=== PATIENT | female | born 1980 | race African-American/Black ===

== ENCOUNTER 2020-02-28 20:59 | Observation (INO) | payer OTHER, SELFPAY ==
--- NOTE | ~2020-02-28 | XR_ITS ---
EXAMINATION: XR chest 1V portable DATE: 02/28/2020 21:44 INDICATION: Chest pain. Shortness of breath. TECHNIQUE: A single frontal view of the chest was obtained. COMPARISON: None. FINDINGS: The chest demonstrates clear lungs without pneumonia, pleural effusion, or pneumothorax. Th e heart size is normal. IMPRESSION: 1. No acute cardiopulmonary disease. Reviewed, dictated and finalized at location A. [facility] [employer]
--- NOTE | 2020-02-28 21:03 | ECG_ITS ---
Measurements Intervals [place] Rate: 135 P: 67 WI: 155 QRS: 36 QRSD: 97 T: 38 QT: 331 QTc: 496 Interpretive Statements SINUS TACHYCARDIA VOLTAGE CRITERIA FOR LVH NONSPECIFIC ST & T-WAVE ABNORMALITY- DIFFUSE LEADS BASELINE WANDER- AVL, AVF, V3-V6 ABNORMAL ECG Electronically Signed On 02-29-2020 6:19:40 [employer]ACH[employer] by Evan Perez D.O.
[2020-02-28 21:19] VITALS: BP 145/84; PULSE 101; RESP 20; TEMP 38; O2SAT 100
--- NOTE | 2020-02-28 21:24 | ED.GENADULT ---
HPI - General Adult General Chief complaint: Chest Pain <Elizabeth Saxena MD - Last Filed: 02/29/20 11:21> Stated complaint: CP <Elizabeth Saxena MD - Last Filed: 02/29/20 11:21> Time Seen by Provider: 02/28/20 21:09 <Elizabeth Saxena MD - Last Filed: 02/29/20 11:21> Source: patient <Elizabeth Saxena MD - Last Filed: 02/29/20 11:21> History of Present Illness HPI narrative: Patient is a 40 y/o female complaining of chest pain radiating to left jaw starting 1-2 hours ago. She states that she was just sitting at home when this happened. She describes the pain as pressure and rates it as 7/10. There is no alleviating or exacerbating factor. She also feels SOB. She denies any fever. She states that she lost sense of taste last week. <Elizabeth Saxena MD - Last Filed: 02/29/20 11:21> Related Data Home medications: Home Medications Medication Instructions Recorded Confirmed apremilast [Otezla] 30 mg PO DAILY 02/29/20 02/29/20 <Elizabeth Saxena MD - Last Filed: 02/29/20 11:21> Allergies/adverse reactions: Allergies Allergy/AdvReac Type Severity Reaction Status Date / Time Iodinated Contrast Media AdvReac Nausea and Verified 02/29/20 08:54 Vomiting <Elizabeth Saxena MD - Last Filed: 02/29/20 11:21> Review of Systems Constitutional: Constitutional: Denies chills, Denies fever(s), Denies headache(s) and Denies weakness <Elizabeth Saxena MD - Last Filed: 02/29/20 11:21> Eyes: Eyes: Denies blurry vision <Elizabeth Saxena MD - Last Filed: 02/29/20 11:21> ENT: Denies headache(s) and Denies neck pain <Elizabeth Saxena MD - Last Filed: 02/29/20 11:21> Comments: lost taste <Elizabeth Saxena MD - Last Filed: 02/29/20 11:21> Cardiovascular: Cardiovascular: Reports chest pain and Reports dyspnea <Elizabeth Saxena MD - Last Filed: 02/29/20 11:21> Respiratory: Respiratory: Denies cough and Reports dyspnea <Elizabeth Saxena MD - Last Filed: 02/29/20 11:21> Gastrointestinal: Gastrointestinal: Denies abdominal pain, Denies diarrhea, Denies nausea and Denies vomiting <Elizabeth Saxena MD - Last Filed: 02/29/20 11:21> Genitourinary: Genitourinary: Denies hematuria and Denies dysuria <Elizabeth Saxena MD - Last Filed: 02/29/20 11:21> Musculoskeletal: Musculoskeletal: Denies back pain and Denies neck pain <Elizabeth Saxena MD - Last Filed: 02/29/20 11:21> Neurologic: Denies headache(s) and Denies weakness <Elizabeth Saxena MD - Last Filed: 02/29/20 11:21> PMF Family History Family History: Family History Father Family history of diabetes mellitus in first degree relative Mother Family history of congestive heart failure Hypertension Family history of type 1 diabetes mellitus Family history of heart disease in male family member before age 55 Sibling Hypertension Grandparent Family history of type 1 diabetes mellitus Other Diabetes mellitus Family history of arthritis Family history of cardiovascular disease Family history of lung cancer Family history of premature coronary heart disease <Elizabeth Saxena MD - Last Filed: 02/29/20 11:21> Social History Social History: Social History Smoking status: Never smoker Alcohol intake: current Drinks per week: 4 Substance use: current Substance use type: marijuana Spiritual care concerns: No <Elizabeth Saxena MD - Last Filed: 02/29/20 11:21> Exam Const: General: no acute distress and well developed <Elizabeth Saxena MD - Last Filed: 02/29/20 11:21> Orientation/consciousness: oriented to person, oriented to place, oriented to time and patient oriented x3 <Elizabeth Saxena MD - Last Filed: 02/29/20 11:21> HENMT: Head: normocephalic <Elizabeth Saxena MD - Last Filed: 02/29/20 11:21> Ears: external ears normal <Elizabeth Saxena MD - Last Filed: 02/29/20 11:21> General nose exam: Normal external nose present <Elizabeth Mckeon Ch
[2020-02-28 21:37] LABS: Basophils Percent Auto 0.4 % (0.2-1.2); Eosinophils Absolute Auto 0.3 K/mm3 (0-0.3); Hemoglobin 13.2 g/dL (12.0-15.0); Immature Granulocyte Absolute 0.01 K/mm3 (0.00-0.031); Immature Granulocyte Percent A 0.2 % (0-0.5); Lymphocytes Absolute Auto 2.42 K/mm3 (0.9-3.2); Lymphocytes Percent Auto 47.2 % (18.3-44.2); Mean Corpuscular HGB Conc 33.8 g/dl (32-36); Mean Corpuscular Volume 94.4 fl (80-100); Mean Platelet Volume 10.3 fl (7.4-10.4); Monocytes Absolute Auto 0.4 K/mm3 (0.1-0.6); Monocytes Percent Auto 7.8 % (2.6-8.5); Neutrophils Percent Auto 38.4 % (45.5-73.1); Platelet Count Result 280 k/mm3 (150-375); Red Blood Count 4.13 M/mm3 (4.2-5.4); Red Cell Distribution Width 13.1 % (11.5-14.5); White Blood Count 5.1 K/mm3 (4.5-10.0)
[2020-02-28] MEDS: ASPIRIN 81 MG CHEWABLE TABLET 324 MG PO (21:41)
[2020-02-28] MEDS: LORazepam INJ (*CRX) 2 MG/ML VIAL 1 MG IV PUSH (21:42)
[2020-02-28 21:46] LABS: INR 1.1; Prothrombin Time 14.3 Seconds (11.1-14.7)
[2020-02-28 21:47] LABS: Partial Thromboplastin Time 29.2 SECONDS (22.3-36.8)
[2020-02-28 21:49] LABS: Anion Gap 13 mmol/L (8-16); Blood Urea Nitrogen 10 mg/dL (7-17); Calcium 9.8 mg/dL (8.4-10.2); Carbon Dioxide 27 mmol/L (22-30); Chloride 103 mmol/L (98-107); Estimated CRCL calculation 110 ml/min; Estimated Glomerular Filt Rate > 60; Glucose 118 mg/dL (65-105); Potassium 3.1 mmol/L (3.4-5.0); Sodium 143 mmol/L (137-145)
[2020-02-28 22:00] LABS: D Dimer < 0.22 ug/mL (<0.48)
[2020-02-28 22:01] LABS: Troponin I 0.023 ng/mL (0.000-0.034)
--- NOTE | 2020-02-28 23:19 | ECG_ITS ---
Measurements Intervals [place] Rate: 69 P: 46 VA: 192 QRS: 2 QRSD: 106 T: -12 QT: 369 QTc: 397 Interpretive Statements SINUS RHYTHM POSSIBLE LEFT VENTRICULAR HYPERTROPHY BORDERLINE T WAVE ABNORMALITY- ANTERIOR LEADS BORDERLINE ECG Electronically Signed On 02-29-2020 6:22:40 [employer] by Evan Perez D.O.
[2020-02-28 23:24] VITALS: BP 102/78; PULSE 80; RESP 20; O2SAT 100
[2020-02-28] MEDS: POTASSIUM CHLORIDE 20 MEQ TABLET 40 MEQ PO (23:31)
[2020-02-29] VITALS (14 sets, daily range): BP systolic 95–133; BP diastolic 58–91; PULSE 48–77; RESP 16–20; TEMP 36.3–36.9; O2SAT 97–100; BMI 29.6
[2020-02-29 00:53] LABS: Troponin I < 0.012 ng/mL (0.000-0.034)
[2020-02-29 03:37] LABS: Troponin I 0.023 ng/mL (0.000-0.034)
--- NOTE | 2020-02-29 04:36 | PC.NURSE ---
pt placed on a hospital bed.
--- NOTE | 2020-02-29 08:33 | ADMGEN ---
This patient, Araceli Jiang, was admitted to [facility] Surg Room 322-01. Patient/family oriented to hospital policies and general routines including ID bracelet, bed and alarms, visiting hours, pain management, procedures, bathroom and other care routines, personal items, smoking policy, room service/diet, and visiting hours. Information on how to activate the Rapid Response Team has been discussed. Patient/Family are encouraged to report perceived risks to care and to ask questions if they do not understand what they are told or what they should do.
[2020-02-29 16:06] LABS: Troponin I < 0.012 ng/mL (0.000-0.034)
[2020-02-29] MEDS: POTASSIUM CHLORIDE 20 MEQ PACKET (FOR LIQUID) 40 MEQ PO (16:15)
--- NOTE | 2020-02-29 17:18 | PM.IMHP ---
H&P: HPI History of Present Illness Date/Time: 02/29/20 17:18 Chief complaint: Chest pain Suspected COVID 19 Narrative: Araceli Jiang is a 40 year old female complaining of chest pain radiating to left jaw last night. Noticed her heart rate going up to 140s at that time, knew this because of her i watch. Pt felt sob at that time and had chest discomfort. [place] like a rock in her chest at that time. Pt has seen Dr Hand for tacycardia but her holter monitor was normal. Pt had also had low grade fever, allergies, nasal congestion. sneezing and itchy eyes last week. Pt also mentions loss of taste and not eating for one week. Denies body aches or fatigue. Mentions that her friend was tested positive last week but remembers she had met her outside and had mask at that time. Presently pt denies chest pain awaiting serial troponins and covid test, she is currently in isolation room on medical floor Pt has a history of fibroids which she had surgery for and psoriasis which she is on treatment for. Review of Systems Constitutional: Constitutional: Reports poor appetite Comments: loss of taste low grade fever, allergies, nasal congestion. sneezing and itchy eyes PMFSH Family History Family History Father Family history of diabetes mellitus in first degree relative Mother Family history of congestive heart failure Hypertension Family history of type 1 diabetes mellitus Family history of heart disease in male family member before age 55 Sibling Hypertension Grandparent Family history of type 1 diabetes mellitus Other Diabetes mellitus Family history of arthritis Family history of cardiovascular disease Family history of lung cancer Family history of premature coronary heart disease Social History Social History Smoking status: Never smoker Alcohol intake: current Drinks per week: 4 Substance use: current Substance use type: marijuana Spiritual care concerns: No Meds Home Medications and Allergies Home Medications Medication Instructions Recorded Confirmed Type apremilast [Otezla] 30 mg PO DAILY 02/29/20 02/29/20 History Allergies Allergy/AdvReac Type Severity Reaction Status Date / Time Iodinated Contrast Media AdvReac Nausea and Verified 02/29/20 08:54 Vomiting Vital Signs Vital Signs - 24 hr 02/28/20 21:19 02/28/20 23:24 02/29/20 00:08 Temperature 38.0 C H Pulse Rate 101 H 80 58 L Respiratory Rate 20 20 18 Blood Pressure 145/84 H 102/78 111/76 Pulse Oximetry 100 100 100 02/29/20 01:40 02/29/20 02:18 02/29/20 03:02 Temperature Pulse Rate 60 53 L 52 L Respiratory Rate 18 16 16 Blood Pressure 103/65 102/60 98/62 L Pulse Oximetry 97 100 100 02/29/20 03:55 02/29/20 04:46 02/29/20 05:16 Temperature 36.9 C Pulse Rate 48 L 52 L 52 L Respiratory Rate 18 16 16 Blood Pressure 101/66 104/77 95/62 L Pulse Oximetry 99 100 100 02/29/20 07:04 02/29/20 07:20 02/29/20 08:00 Temperature 36.8 C Pulse Rate 77 53 L 55 L Respiratory Rate 18 18 Blood Pressure 133/91 H 120/79 Pulse Oximetry 100 98 02/29/20 12:00 Temperature 36.3 C L Pulse Rate 60 Respiratory Rate 18 Blood Pressure 119/58 L Pulse Oximetry 100 Exam Const: General: well developed Nutritional Appearance: well nourished HENMT: Head: normocephalic Eyes: General: appearance normal, both eyes and all related structures Pupils: Equal, round and reactive pupils present Neck: Neck: supple Chest: Chest palpation & inspection: normal inspection of the chest Resp: Effort & Inspection: normal respiratory effort GI: Inspection: normal to inspection GI Palp: No abdominal tenderness, Yes Soft to palpation and No Tenderness to palpation present (GI) Auscultation: normal bowel sounds Skin: General skin exam: normal color and dry skin Neuro: Cranial nerves: Yes CN's II-
[2020-02-29 20:50] LABS: SARS-CoV-2 RNA PCR Positive
[2020-02-29 21:49] LABS: Troponin I 0.015 ng/mL (0.000-0.034)
[2020-03-01] VITALS: PULSE 44
[2020-03-01 01:13] VITALS: BP 107/64; PULSE 53; RESP 16; TEMP 36.7; O2SAT 100
[2020-03-01 04:00] VITALS: PULSE 41
[2020-03-01 06:00] VITALS: BP 127/69; PULSE 97; RESP 20; TEMP 36.6; O2SAT 100
[2020-03-01 08:00] VITALS: BP 117/72; PULSE 53; PULSE 54; RESP 18; TEMP 36.6; O2SAT 100
--- NOTE | 2020-03-01 08:39 | PM.DS ---
DS: Admitting Diagnosis Admitting Diagnosis Admitting Diagnosis: Chest pain Suspected COVID 19 DS: Discharge Diagnosis Discharge Diagnosis (1) Chest pain: Qualifiers: Chest pain type: unspecified Qualified Code(s): R07.9 - Chest pain, unspecified Code(s): R07.9 - Chest pain, unspecified Status: Acute Assessment and Plan: Serial troponin was normal appears to be anxiety PRN Ativan script given to patient on dischrage EKG shows LVH pt denies history of HTN Pt to have a cardiology apt in 1 months time may benefit from ECHO at that time. (2) Suspected COVID-19 virus infection: Code(s): Z20.828 - Contact with and (suspected) exposure to other viral communicable diseases Status: Acute Assessment and Plan: Pt is covid positive (3) Acute hypokalemia: Code(s): E87.6 - Hypokalemia Status: Acute Assessment and Plan: Low potassium due to loss of appetite pt to have potassium supplements in hospital adviced to eat more bananas DS: Summary Time Spent with Patient Time attestation: Total time spent providing and/or coordinating discharge services:40 minutes on day of discharge Exam Const: General: well developed Nutritional Appearance: well nourished HENMT: Head: normocephalic Eyes: General: appearance normal, both eyes and all related structures Pupils: Equal, round and reactive pupils present Neck: Neck: supple Chest: Chest palpation & inspection: normal inspection of the chest Resp: Effort & Inspection: normal respiratory effort GI: Inspection: normal to inspection Auscultation: normal bowel sounds Skin: General skin exam: normal color and dry skin Neuro: Cranial nerves: Yes CN's II-XII intact bilaterally and Yes Equal, round and reactive pupils present Cognition (Neuro): normal cognition Speech: normal speech Motor exam (neuro): 5/5 motor strength present throughout Extrem: General: normal to inspection Psych: Appearance: grossly normal Mental Status: mental status grossly normal DS: Data Data Completed and Pending Labs on day of discharge: Labs from last 24 hours 02/29/20 02/29/20 02/28/20 21:08 15:26 23:47 Troponin I 0.015 D < 0.012 SARS-CoV-2 RNA (RT-PCR) Positive A Discharge Plan Discharge Attending physician on discharge: Grandhi,Nia R. Discharging Clinician: Nia Brewster Anticipated Discharge Date/Time: 03/01/20 08:36 Patient Disposition: Home, Self-Care Activity: as tolerated Diet: regular Discharge Instructions: 14 days homequarantine Wear face mask Stay home Wash hands Eat more bananas as potassium is slightly low Return to ED if feeling SOB Patient Instructions: Antibiotic Form, Chest Pain (DC), Pain Management (DC) Stand Alone Forms: General Discharge Information Follow-up/Referrals: UNKNOWN,DOCTOR [Primary Care Provider] - Celsa Shepard MD [Physician] - (in 1 months time) Discharge Medications: New lorazepam [Ativan] 0.5 mg tablet 0.5 mg PO BID PRN (Reason: anxiety) Qty: 10 RF: 0 Continued Otezla 30 mg tablet 30 mg PO DAILY RF: 0 Date of admission: 02/29/20 02:11 Primary Care Provider: UNKNOWN,DOCTOR Admitting Provider: Rose Kim Attending physician on admission: Rose Kim Condition: Stable
== END 2020-03-01 10:26 | disposition home or self-care (01) ==
LOC: ANHED 02-29 02:18 → ANH3MEDSUR 02-29 10:34
PROVIDERS: Emergency Medicine; Admitting Provider Internal Medicine; Emergency Provider Emergency Medicine; Visit Provider Family Medicine
DX: U07.1 COVID-19 (principal); R07.9 Chest pain, unspecified; E87.6 Hypokalemia
CPT/HCPCS: 36415; 71045; 80048; 84443; 84484; 85025; 85380; 85610; 85730; 87635; 93005; 96374; 99285; A9270; C9803; G0378; J2060; U0003

== ENCOUNTER 2023-11-24 23:50 | Emergency (ER) | payer OTHER, SELFPAY ==
[2023-11-24 23:58] VITALS: BP 124/77; PULSE 66; RESP 15; O2SAT 100
--- NOTE | 2023-11-25 00:11 | PC.NURSE ---
During triage it was explained to pt that we would do an EKG and some blood work. Pt stated can I sit here for a second I don't think I need all of that Pt was encouraged to be seen by a provider by this RN. Pt stated she wants to leave and doesn't want any other tests. Pt encouraged to come back to ED if symptoms return. Pt then ambulated out of the ED.
== END 2023-11-25 00:21 | disposition left against medical advice (07) ==
LOC: ANHED 11-25 00:20
DX: R07.9 Chest pain, unspecified (principal)
CPT/HCPCS: 99199